=== PATIENT | male | born 1990 | race Two or more races ===

== ENCOUNTER 2018-03-28 00:47 | Emergency (ER) | payer OTHER ==
[~2018-03-28] VITALS: Ht 180.3 cm; Wt 65.8 kg
[~2018-03-28 00:47] MED LIST: BUCALSEP SPRAY30 ML MM; CEFADROXIL500 MG PO; LEVSIN0.125 MG PO; PROTONIX40 MG PO; ZANTAC300 MG PO
[2018-03-28] MEDS ORDERED: KETO10TA2 PO (05:59)
== END 2018-03-28 06:22 | disposition home or self-care (01) ==
LOC: ER 00:47
DX: K40.90 Unilateral inguinal hernia, without obstruction or gangrene, not specified as recurrent (principal); R10.2 Pelvic and perineal pain

== ENCOUNTER 2018-03-31 10:30 | Emergency (ER) | payer OTHER ==
[~2018-03-31] VITALS: Ht 180.3 cm; Wt 65.8 kg
[~2018-03-31 10:30] MED LIST changes: +KETO10TA2 PO
== END 2018-03-31 21:05 | disposition home or self-care (01) ==
LOC: ER 10:30
DX: K40.90 Unilateral inguinal hernia, without obstruction or gangrene, not specified as recurrent (principal)

== ENCOUNTER 2020-10-16 08:45 | Outpatient (CLI) | payer OTHER | END 2020-10-16 08:59 | disposition home or self-care (01) | LOC: MRI 08:45 | PROVIDERS: ATTEND General Practice | DX: R22.1 Localized swelling, mass and lump, neck (principal); R22.0 Localized swelling, mass and lump, head | CPT/HCPCS: 70540 ==

== ENCOUNTER 2023-03-26 11:58 | Outpatient (CLI) | payer OTHER | END 2023-03-26 12:08 | disposition home or self-care (01) | LOC: RAD 11:58 | PROVIDERS: ATTEND Specialist | DX: M54.9 Dorsalgia, unspecified (principal); Z13.1 Encounter for screening for diabetes mellitus; Z13.29 Encounter for screening for other suspected endocrine disorder; Z13.220 Encounter for screening for lipoid disorders ==

== ENCOUNTER → 2023-07-14 11:14 | Outpatient (CLI) | payer OTHER | END | disposition home or self-care (01) | LOC: LAB 11:14 | PROVIDERS: ATTEND Radiology Diagnostic Radiology | DX: R06.02 Shortness of breath (principal) ==

== ENCOUNTER 2023-07-21 08:02 | Outpatient (CLI) | payer OTHER | END 2023-07-21 08:12 | disposition home or self-care (01) | LOC: TOM 08:02 | PROVIDERS: ATTEND Specialist | DX: R06.02 Shortness of breath (principal) ==

== ENCOUNTER 2023-08-20 08:01 | Outpatient (CLI) | payer OTHER | END 2023-08-20 08:14 | disposition home or self-care (01) | LOC: TOM 08:01 | PROVIDERS: ATTEND Specialist | DX: R10.10 Upper abdominal pain, unspecified (principal) ==

== ENCOUNTER 2025-10-23 10:10 | Outpatient (CLI) | payer OTHER | END 2025-10-23 10:14 | disposition home or self-care (01) | LOC: SONOGRAMA 10:10 | PROVIDERS: ATTEND Specialist | DX: R10.13 Epigastric pain (principal) ==